=== PATIENT | male | born 1960 | race Caucasian/White ===

== ENCOUNTER 2018-07-07 05:29 | Inpatient (IN) | payer OTHER ==
[2018-06-30 09:25] LABS: HEMATOCRIT 50.5 % (42.0-52.0); HEMOGLOBIN 18.2 gm/dL (14.0-18.0); MCH 34.6 pg (26.0-34.0); MCHC 35.9 g/dL (28.0-37.0); MCV 96.3 fL (80.0-100.0); RBC 5.24 mil/uL (4.50-6.00); RDW 12.7 % (10.5-14.5); URINE BILIRUBIN NEGATIVE (Negative); URINE BLOOD NEGATIVE (Negative); URINE CLARITY CLEAR; URINE COLOR YELLOW; URINE GLUCOSE-RANDOM* NEGATIVE (Negative); URINE KETONES NEGATIVE (Negative); URINE LEUKOCYTES-REFLEX NEGATIVE (Negative); URINE NITRITE-REFLEX NEGATIVE (Negative); URINE PROTEIN (DIPSTICK) NEGATIVE (Negative); URINE UROBILINOGEN 0.2 E.U./dl (0.2-1.0); WBC 8.5 thou/uL (4.0-11.0)
[2018-06-30 09:33] LABS: ALBUMIN 4.2 g/dL (3.4-5.0); CREATININE 0.9 mg/dL (0.7-1.3); POTASSIUM 4.2 mmol/L (3.5-5.1)
[2018-06-30 09:37] LABS: INR 1.1; PROTIME 11.1 Seconds (9.3-11.4)
[~2018-07-07] VITALS: Ht 188 cm; Wt 123.8 kg
--- NOTE | ~2018-07-07 | EKG ---
[address] [address] ELECTROCARDIOGRAM REPORT Name: MARY OCONNOR Room #: PRE IN [facility]#: [id number] Admission: Attend Phys: Narinder Cervantes MD Discharge: Date of : 64 Report #: [id number] THIS REPORT FOR: //name// [facility] Test Date: 2018-06-30 Test Time: 09:21:33 Pat Name: MARY OCONNOR Department: Room: Gender: M Hide Buffer: RICKI ADAMES : 1960 Requested By: Narinder Cervantes Order Number: [id number] MD: Jake Núñez Measurements Intervals Matthews Rate: 84 P: 36 ME: 189 QRS: -20 QRSD: 92 T: 52 QT: 352 QTc: 417 Interpretive Statements Sinus rhythm Left ventricular hypertrophy No previous ECG available for comparison Electronically Signed On 06-30-2018 15:39:34 MARKETING [employer]ATEGY MANAGER by Jake Núñez [email or web address] <ELECTRONICALLY SIGNED> By: Jake Núñez MD 06/30/18 1539 0921 0921 Jake Núñez MD /WENDY
--- NOTE | ~2018-07-07 | D ---
[facility] [place] [address] DISCHARGE SUMMARY Name: MARY OCONNOR Room #: 225-P [facility] IN M.R.#: [id number] Admission: 07/07/18 Attend Phys: Narinder Cervantes MD Discharge: 07/10/18 Date of : 64 Report #: [id number] THIS REPORT FOR: //name// CC: Narinder Cervantes Physician staff JUAN ACOSTA DATE OF SERVICE: 07/10/2018 FINAL DIAGNOSIS: End-stage degenerative osteoarthritis, left knee. OPERATION PROCEDURES: Left total knee arthroplasty. HISTORY: This 57-year-old gentleman has progressive left knee pain with significant degenerative osteoarthritis. He underwent left total knee arthroplasty and tolerated this well. Postoperatively, his course was slowed by moderate pain control issues. He was started on IV analgesics and then gradually advanced to oral analgesics. He was able to resume a regular diet. He started on physical therapy and made gradual slow progress. He has resumed his regular medications. He seems now safe and functional and is ambulating independently. He is anxious for discharge home where he will continue with independent exercise and then begin outpatient therapy. DISCHARGE MEDICATIONS: Include amlodipine 10 mg daily, metoprolol 50 mg daily, losartan 100 mg daily, Xarelto 10 mg daily, oxycodone 10/325 one q.6 hours p.r.n. for pain. DISCHARGE INSTRUCTIONS: I have asked him to call or return to my office later this week for routine followup and then we will see him in about 2 weeks for suture removal. <ELECTRONICALLY SIGNED> By: Narinder Cervantes MD 07/11/18 1150 1120 1143 Narinder Cervantes MD /nt
--- NOTE | ~2018-07-07 | O ---
[facility] [place] [address] OPERATIVE REPORT Name: MARY OCONNOR Room #: 449-I ADM IN M.R.#: [id number] Admission: 07/07/18 Attend Phys: Narinder Cervantes MD Discharge: Date of : 64 Report #: [id number] THIS REPORT FOR: //name// CC: Narinder Cervantes Physician staff JUAN ACOSTA DATE OF SERVICE: 07/07/2018 PREOPERATIVE DIAGNOSIS: End-stage degenerative osteoarthritis, left knee. POSTOPERATIVE DIAGNOSIS: End-stage degenerative osteoarthritis, left knee. PROCEDURE: Left total knee arthroplasty. SURGEON: Narinder Cervantes MD. INDICATIONS: This 57-year-old gentleman complains of chronic progressive left knee pain. Clinical and radiographic evaluation revealed moderate degenerative osteoarthritis with areas of chondromalacia and meniscus damage. We have reviewed treatment options and he has elected to go ahead with total joint replacement. DESCRIPTION OF PROCEDURE: The patient was taken to the operating room where he was placed under general anesthesia. Prophylactic intravenous antibiotics were administered. The left knee and leg were meticulously prepped and draped and a thigh tourniquet inflated to 300 mmHg. An anterior longitudinal skin incision was made and carried through the medial retinaculum. The patella was reflected laterally. Marked degenerative change in all 3 compartments was noted. The Madison [employer] Nephew knee system was utilized. Intramedullary guides were used on both the femur and the tibia. The femur was cut in 5 degrees of valgus and the tibia cut perpendicular to the long axis of the bone. The femur was best suited for a size 6 femoral component and the tibia best suited for a size 5 tibial component. The patellar surface was resected and a 38-mm patellar button fit nicely. A trial reduction was performed and an 11-mm polyethylene insert fit nicely resulting in good stability, full knee extension and flexion beyond 135 degrees. The trial components were removed. The intramedullary canal was blocked with a bone block on both the femoral and tibial sides. The surfaces were thoroughly irrigated and dried. Methylmethacrylate was then mixed and injected into the porous surface of the proximal tibia. The [employer] Nephew size 5 Lisbeth II left tibial baseplate was then inserted. This was applied in appropriate alignment and seated nicely and appeared to be secure. Excess cement was removed around its margin. An 11-mm Legion cruciate retaining high flexion polyethylene liner was then inserted. This was snapped into place and seated nicely and appeared to be secure. The size 6 Legion cruciate retaining femoral component was then impacted on to the distal femur. Cement was used at [address] [address] OPERATIVE REPORT Name: MARY OCONNOR Room #: 449-I [facility] IN .R.#: [id number] Admission: 07/07/18 Attend Phys: Narinder Cervantes MD Discharge: Date of : 64 Report #: [id number] the distal aspect where the bone was slightly soft. This component also seated nicely and appeared to be secure. Excess cement was removed around its margin. A 38-mm Lisbeth II patellar button was cemented into place with appropriate anchor holes and secured with a patellar clamp until the cement had hardened. Excess cement was removed around its margin. Range of motion and stability were assessed after the cement had hardened and the knee demonstrated full knee extension, flexion to about 140 degrees and normal stability of the patella, which tracked nicely. The tourniquet was deflated after a total tourniquet time of 60 minutes. A good hemostasis was confirmed. A single Hemovac was left in the wound exiting through a separate stab incision. The fascia was closed with multiple #1 Vicryl sutures. The subcutaneous tissues were closed with 0 Monocryl. The skin was closed with skin luis e. Sterile dressing was applied. The patient was awakened and returned to recovery room in good condition. <ELECTRONICALLY SIGNED> By: Narinder Cervantes MD 07/08/18 1507 1353 1508 Narinder Cervantes MD /nt
[~2018-07-07 05:29] MED LIST: AMLODIPINE BESY10 MG PO; LOSARTAN POTAS100 MG PO; OSTEO BI-FLEX1 EAC1 PO; TOPROL XL50 MG PO
[2018-07-07 10:10] VITALS: BP 116/73
[2018-07-07 16:00] VITALS: BP 121/73
[2018-07-07 19:10] VITALS: BP 130/77
[2018-07-07 23:46] VITALS: BP 105/60
[2018-07-08 03:10] VITALS: BP 113/71
[2018-07-08 06:11] LABS: HEMATOCRIT 42.3 % (42.0-52.0); HEMOGLOBIN 14.9 gm/dL (14.0-18.0); MCH 34.3 pg (26.0-34.0); MCHC 35.1 g/dL (28.0-37.0); MCV 97.5 fL (80.0-100.0); RBC 4.34 mil/uL (4.50-6.00); RDW 12.7 % (10.5-14.5); WBC 12.8 thou/uL (4.0-11.0)
[2018-07-08 07:06] VITALS: BP 125/86
[2018-07-08 07:53] LABS: CALCIUM 8.4 mg/dL (8.5-10.1); CREATININE 0.9 mg/dL (0.7-1.3); MAGNESIUM 1.9 mg/dL (1.8-2.4); POTASSIUM 4.4 mmol/L (3.5-5.1)
[2018-07-08 20:01] VITALS: BP 122/76
[2018-07-09 08:07] VITALS: BP 135/86
[2018-07-09 08:19] LABS: HEMATOCRIT 39.1 % (42.0-52.0); HEMOGLOBIN 13.2 gm/dL (14.0-18.0); MCHC 33.9 g/dL (28.0-37.0); MCV 97.4 fL (80.0-100.0); RBC 4.01 mil/uL (4.50-6.00); RDW 12.7 % (10.5-14.5); WBC 10.9 thou/uL (4.0-11.0)
[2018-07-09 20:00] VITALS: BP 127/83
[2018-07-10 07:04] VITALS: BP 159/93
[2018-07-10 08:48] LABS: HEMATOCRIT 37.1 % (42.0-52.0); HEMOGLOBIN 13.1 gm/dL (14.0-18.0); MCH 34.2 pg (26.0-34.0); MCHC 35.2 g/dL (28.0-37.0); MCV 97.1 fL (80.0-100.0); RBC 3.82 mil/uL (4.50-6.00); RDW 12.6 % (10.5-14.5); WBC 10.9 thou/uL (4.0-11.0)
[2018-07-10 12:26] VITALS: BP 159/93
== END 2018-07-10 14:40 | disposition home health service (06) | DRG 470 ==
LOC: 4W 05:29 → TBA 05:29 → PRE 05:33 → OR 09:59 → EDSTATUS 10:00 → PRE 10:02 → 4W 15:45 → SICU 07-08 17:24
PROVIDERS: Nurse Practitioner; Orthopaedic Surgery
PROC: 0SRD0J9 Replacement of Left Knee Joint with Synthetic Substitute, Cemented, Open Approach (ICD-10-PCS; principal; 2018-07-07)
DX: M17.12 Unilateral primary osteoarthritis, left knee (principal); I10 Essential (primary) hypertension; Z87.891 Personal history of nicotine dependence; Z79.01 Long term (current) use of anticoagulants; Z79.899 Other long term (current) drug therapy; Z28.21 Immunization not carried out because of patient refusal
CPT/HCPCS: 10047; 15002; 50010; 50101; 50415; 50954; 51130; 51225; 51412; 51771; 53364; 56525; 57095; 62110; 62900; 70005